=== PATIENT | female | born 1990 | race Caucasian/White ===

== ENCOUNTER 2020-05-01 16:28 | Emergency (ER) | payer SELFPAY ==
--- NOTE | 2020-05-01 18:33 | RADIOLOGY REPORT (SQ) ---
EXAM DESCRIPTION: HAND LEFT 3 VIEWS IMAGES COMPLETED DATE/TIME: 05/01/2020 5:09 pm REASON FOR STUDY: middle finger deformity COMPARISON: None. EXAM PARAMETERS: NUMBER OF VIEWS: Three views. TECHNIQUE: AP, lateral and oblique radiographic images acquired of the left hand. LIMITATIONS: None. FINDINGS: MINERALIZATION: Normal. BONES: Comminuted fracture of the midshaft 3rd digit middle phalanx. No involvement of the articular surfaces at proximal or distal interphalangeal joint spaces. Mild ulnar deviation of the distal fra cture fragments. JOINTS: No effusions. SOFT TISSUES: No soft tissue swelling. No foreign body. OTHER: No other significant finding. IMPRESSION: Acute extra-articular comminuted fracture middle phalanx 3rd digit. TECHNICAL DOCUMENTATION: JOB ID: [id number] 2010 [employer]- All Rights Reserved Reading location - IP/workstation name: [id number]
[2020-05-01] MEDS ORDERED: OXYCODONE-ACETAMINOPHEN 5-325 MG TABLET PO ONE ×2 (18:52→22:30)
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
[2020-05-01] MEDS ORDERED: ONDANSETRON HCL INJ/PF 4 MG/2 ML SDV IV ONE ×2 (18:53→22:30)
[2020-05-01] MEDS ORDERED: CLINDAMYCIN PHOSPHATE INJ 300 MG/2 ML SDV IM ONE ×2 (18:53→22:30)
[2020-05-01] MEDS ORDERED: CLINDAMYCIN HCL 150 MG CAPSULE PO ONE (23:08)
[2020-05-01] MEDS ORDERED: ONDANSETRON 4 MG TAB.RAPDIS PO ONE (23:08)
[2020-05-01] MEDS ORDERED: LIDOCAINE 1% INJ (10 MG/ML) 10 ML MDV INJ ONE (23:08)
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
[2020-05-02 00:52] VITALS: BP 132/89
--- NOTE | 2020-05-02 01:00 | RADIOLOGY REPORT (SQ) ---
Left third digit radiograph: 05/01/2020 11:58 PM [employer] TECHNIQUE: AP image of the left third digit was obtained. COMPARISON: Left hand radiograph from 05/01/2020 HISTORY: 30-year-old patient with left third digit pain. FINDINGS: There is an acute fracture through the middle phalanx of the left third digit. This demonstrates improved alignment since prior imaging. There is diffuse overlying soft tissue swelling. No obvious intra-articular communication is seen. IMPRESSION: There is an acute fracture through the middle phalanx of the left third digit. This demonstrates improved alignment since prior imaging.
== END 2020-05-02 00:52 | disposition home or self-care (01) ==
LOC: ER 16:28
DX: S62.623B Displaced fracture of middle phalanx of left middle finger, initial encounter for open fracture (principal); X50.0XXA Overexertion from strenuous movement or load, initial encounter; Y93.89 Activity, other specified; F17.200 Nicotine dependence, unspecified, uncomplicated; Z88.0 Allergy status to penicillin
CPT/HCPCS: 99283; 73140; 73130; 26725; S0119